=== PATIENT | male | born 1960 | race Caucasian/White ===

== ENCOUNTER 2017-09-30 13:56 | Emergency (ER) | payer OTHER ==
[2017-09-30 14:18] VITALS: BP 133/75; PULSE 78; TEMP 98.7; BMI 22.3
--- NOTE | 2017-09-30 14:27 | PDOC ---
History of Present Illness - General Chief Complaint: Injury Stated Complaint: LEFT THUMB INJURY Time Seen by Provider: 09/30/17 14:06 History Source: Patient Exam Limitations: No Limitations - History of Present Illness Initial Comments: 57 yo M presents with L thumb laceration sustained while using a saw to cut pipe. The saw kicked back and he hit his hand with it, sustaining two small lacerations to the thumb. No heavy bleeding. Injury occurred just [employer]. Patient washing the wound with soap and water on initial evaluation. Last tetanus booster 1 year ago. Past History - Past Medical History Allergies/Adverse Reactions: Allergies Allergy/AdvReac Type Severity Reaction Status Date / Time No Known Allergies Allergy Verified 09/30/17 13:57 Home Medications: Ambulatory Orders Methadone HCl [Methadose] 70 mg PO DAILY 09/30/17 NK [No Known Home Medication] 09/30/17 COPD: No - Suicide/Smoking/Psychosocial Hx Smoking History: Former smoker Have you smoked in the past 12 months: No If you are a former smoker, when did you quit?: 2014 Information on smoking cessation initiated: Yes 'Breaking Loose' booklet given: 09/30/17 Hx Alcohol Use: No Drug/Substance Use Hx: No Substance Use Type: None Review of Systems - Review of Systems Able to Perform ROS?: Yes Comments:: GENERAL/CONSTITUTIONAL: No fever or chills. No weakness. HEAD, EYES, EARS, NOSE AND THROAT: No change in vision. No ear pain or discharge. No sore throat. MUSCULOSKELETAL: No joint or muscle swelling or pain. No neck or back pain. SKIN: +L thumb laceration. NEUROLOGIC: No headache, vertigo, loss of consciousness, or change in strength/ sensation. HEMATOLOGIC/LYMPHATIC: No anemia, easy bleeding, or history of blood clots. *Physical Exam - Vital Signs Last Vital Signs Temp Pulse Resp BP Pulse Ox 98.7 F 78 16 133/75 98 09/30/17 13:57 09/30/17 13:57 09/30/17 13:57 09/30/17 13:57 09/30/17 13:57 - Physical Exam Comments: GENERAL: Awake, alert, and fully oriented, in no acute distress HEAD: No signs of trauma EYES: PERRLA, EOMI, sclera anicteric, conjunctiva clear EXTREMITIES: Normal range of motion, no edema. No clubbing or cyanosis. No cords, erythema, or tenderness NEUROLOGICAL: Cranial nerves II through XII grossly intact. Normal speech, normal gait SKIN: Warm, Dry, normal turgor, no rashes. Two lacerations to the L distal thumb , palmar surface. Laceration #1 is 0.5 cm in length, no active bleeding. Laceration #2 is 1.5 cm in length, also no active bleeding. Linear lacerations. N/V intact. Procedures - Laceration/Wound Repair Left Finger 1st digit Wound Length: to 2.5 cm Wound Explored: clean, no foreign body present Wound's Depth, Shape: superficial, linear Irrigated w/ Saline: Yes Betadine Prep: Yes Anesthesia: 1% Lidocaine Amount of Anesthetic (ccs): 3 (digital block) Wound Repaired With: Sutures Suture Size/Type: 4:0, proline Number of Sutures: 3 Layer Closure: No Sterile Dressing Applied: Yes *DC/Admit/Observation/Transfer Diagnosis at time of Disposition: Laceration of finger Qualifiers: Encounter type: initial encounter Finger: thumb Damage to nail status: without damage Foreign body presence: without foreign body Laterality: left Qualified Code(s): S61.012A - Laceration without foreign body of left thumb without damage to nail, initial encounter - Discharge Dispostion Disposition: HOME Condition at time of disposition: Stable Decision to Admit order: No - Referrals Referrals: Christine Monroy MD [Primary Care Provider] - - Patient Instructions Printed Discharge Instructions: DI for Laceration Repair -- Finger Additional Instructions: RETURN TO THE ER BETWEEN 10/09-10/11 TO HAVE SUTURES REMOVED. KEEP WOUND COVERED WITH DRY GAUZE TO AVOID INFECTION. KEEP WOUND DRY FOR FIRST 48 HOURS. AFTER THAT IT IS OK TO GET IT WET, BUT NO SOAPS, CREAMS, LOTIONS, OINTMENTS. IF YOU HAVE SEVERE PAIN, REDNESS, DRAINAGE OF PUS, OR ANY OTHER CONCERNING SYMPTOMS, RETURN TO THE ER IMMEDIATELY. - Post Discharge Activity
== END 2017-09-30 14:51 | disposition home or self-care (01) ==
LOC: SUPCPDRO 13:56 → FER 13:56
PROC: 0HQGXZZ Repair Left Hand Skin, External Approach (ICD-10-PCS; principal; 2017-09-30)
DX: S61.012A Laceration without foreign body of left thumb without damage to nail, initial encounter (principal); W45.8XXA Other foreign body or object entering through skin, initial encounter; Y93.89 Activity, other specified; Y92.9 Unspecified place or not applicable; Z87.891 Personal history of nicotine dependence
CPT/HCPCS: 99282-25